=== PATIENT | male | born 1990 | race Caucasian/White ===

== ENCOUNTER 2018-08-19 11:38 | Outpatient (CLI) | payer OTHER ==
--- NOTE | 2018-08-19 12:56 | RAD ---
AP ABDOMINAL RADIOGRAPH: 08/19/2018 HISTORY: History of renal calculi. COMPARISON: 01/01/2014 FINDINGS: No definite suspicious calcification is seen on this examination. The bowel gas pattern is nonspecif ic. Osseous structures are intact. The calcification is seen at the L2-L3 level on the left on the prior exam is not visualized on this study. IMPRESSION: No definite calculi are seen overlying the region of the expected location of the renal collecting sy stems and bilateral ureters. Renal shadows are mostly obscured by bowel gas. POS: LAURY
== END 2018-08-19 11:39 | disposition home or self-care (01) ==
LOC: RAD 11:38
PROVIDERS: ATTEND Urology
DX: N20.0 Calculus of kidney (principal)
CPT/HCPCS: 74018

== ENCOUNTER 2019-08-21 10:19 | Emergency (ER) | payer OTHER ==
[2019-08-21 11:30] LABS: Bacteria/HPF None Seen HPF (None Seen); Bilirubin Negative (Negative); Blood, Urine Trace (Negative); Clarity Clear (Clear); Glucose, Urine (Dipstick) Normal (Negative); Leukocyte 25 Leu/uL (Negative); Nitrite Negative (Negative); Protein, Urine (Dipstick) Negative (Neg-Trace); RBC/HPF 0-3 HPF (0-3); Squamous Epithelial 0-3 HPF (0-3); Transitional Epithelial 0-3 HPF (None Seen); Urobilinogen Normal mg/dL (Less than 2)
[2019-08-21 11:41] LABS: Sperm/HPF 1+ HPF (None Seen)
== END 2019-08-21 12:00 | disposition home or self-care (01) ==
LOC: ERS 10:19
DX: N20.0 Calculus of kidney (principal); M10.9 Gout, unspecified; Z79.899 Other long term (current) drug therapy
CPT/HCPCS: 81003; 81015; 99284

== ENCOUNTER 2019-08-28 13:12 | Day surgery (SDC) | payer OTHER ==
[2019-08-23 14:41] VITALS: BMI 28.5
[2019-08-28] MEDS ORDERED: Midazolam HCl 2 mg/2 ml Vial ONE ×2 (15:05→15:32)
[2019-08-28] MEDS ORDERED: Fentanyl 100 MCG/2 ML VIAL ONE (15:32)
[2019-08-28] MEDS ORDERED: HYDROmorphone 0.5 MG/0.5 ML SYRINGE ONE (15:33)
[2019-08-28] MEDS ORDERED: Lidocaine 2% Jelly 5 ML TUBE ONE (15:33)
--- NOTE | 2019-08-28 20:22 | OP ---
DATE OF PROCEDURE: 08/28/2019 PREOPERATIVE DIAGNOSIS: Urethral stones. POSTOPERATIVE DIAGNOSIS: Urethral stones. PROCEDURES PERFORMED: Cystourethroscopy, laser lithotripsy of stone and removal of stone fragments with Nitinol basket. ANESTHESIA: TIVA. ESTIMATED BLOOD LOSS: None. FINDINGS: There is a 9-mm stone kind of wedged in the fossa navicularis. We were able to push it back into the bulb of the urethra, break it up into few fragments with the holmium laser and then used a Nitinol basket to remove those. Inspection of the prostate and bladder revealed no other stones to be present. There was some mild fossa navicularis and meatal stenosis, which is probably why the stone did not pass. DESCRIPTION OF PROCEDURE: Obtained written and verbal consent from the patient. After receiving some IV antibiotics, he was taken to the operating suite. PlexiPulses were placed on his lower extremities and turned on. He was placed in a supine position on the treatment table and was given TIVA sedation. He was placed in the dorsal lithotomy position. He was sterilely prepped and draped. Cystoscopy was done with a 17-Kinyarwanda sheath. The stone was just in the fossa navicularis, was pushed back down to the bulb, then a laser fiber was brought in to break it up in a few pieces. We used a Nitinol basket to basket these pieces and remove them and we will send them off for analysis. The scope was then passed through the prostatic urethra into the bladder and the bladder was inspected without any other finding noted. The rest of the urethra was then reinspected on the way out. A Garcia catheter was not placed. He was awakened, extubated, and taken by stretcher to recovery room. Job ID: [id number]
== END 2019-08-28 17:37 | disposition home or self-care (01) ==
LOC: SDC 13:12
PROVIDERS: ATTEND Urology
PROC: 0TFD8ZZ Fragmentation in Urethra, Via Natural or Artificial Opening Endoscopic (ICD-10-PCS; principal; 2019-08-28)
DX: N21.1 Calculus in urethra (principal)
CPT/HCPCS: 82365; 88300; J0690; J1170; J2250; J3010

== ENCOUNTER 2019-10-25 16:29 | Inpatient (IN) | payer OTHER ==
[~2019-10-25 16:29] MED LIST: Iopamidol-370 76% 500 ML 1 ML ONE
[2019-10-25] MEDS ORDERED: Fentanyl 100 MCG/2 ML VIAL ONE ×2 (17:08→18:59)
[2019-10-25] MEDS ORDERED: Ondansetron PF 4 MG/2 ML Vial ONE (17:10)
[2019-10-25] MEDS ORDERED: Ketorolac Tromethamine 30 MG/ML VIAL ONE (17:10)
[2019-10-25 17:50] LABS: Carbon Dioxide 27 mmol/L (22-29)
[2019-10-25 17:54] LABS: Potassium 4.9 mmol/L (3.5-5.1); Sodium 137 mmol/L (136-145)
[2019-10-25 17:55] LABS: Anion Gap 15 mmol/L (10-20); Chloride 100 mmol/L (98-107)
[2019-10-25 17:56] LABS: %Eosinophils 0.6 % (0.0-10.0)
[2019-10-25 17:56] LABS: BUN (Urea Nitrogen) 12 mg/dL (8.9-20.6); Calc. Creatinine Clearance 0 mL/min (70-130); Estimated GFR-MDRD Greater than 90; Glucose 86 mg/dL (70-105)
[2019-10-25 17:57] LABS: Albumin 4.8 g/dL (3.5-5.0); Bilirubin, Total 0.6 mg/dL (0.2-1.2); Globulin 2.9 g/dL (2.4-3.5); Protein, Total 7.7 g/dL (6.0-8.3)
[2019-10-25 17:58] LABS: ALT (SGPT) 72 U/L (8-55); AST (SGOT) 54 U/L (5-34); Alkaline Phosphatase 98 U/L (40-110); Lipase 520 U/L (8-78)
--- NOTE | 2019-10-25 17:59 | ULT ---
Exam: Right upper quadrant ultrasound: HISTORY: Mid abdominal pain and sternal pain which started today. COMPARISON: None FINDINGS: Liver: Enlarged measuring 20 cm in craniocaudal dimensions. The liver also demonstrates diffuse incre ased echogenicity likely attributable to diffuse fatty infiltration. No focal hepatic lesion is seen. Gallbladder: No evidence of gallbladder calculi, gallbladder wall thickening, or pericholecystic flui d. Common bile duct: The common duct is normal in caliber measuring 4 mm in diameter. Pancreas: Mostly obscured and not well evaluated on this exam. Right kidney: Right kidney demonstrates a normal sonographic appearance. The right kidney measures 1 1.5 cm in length.. IVC: The visualized IVC demonstrates a normal sonographic appearance. IMPRESSION: 1. Hepatomegaly with diffuse fatty infiltration of the liver. 2. No gallbladder calculi are seen, and the common duct is normal in caliber.
[2019-10-25 18:09] LABS: #Eosinphils 0.1 thou/uL (0.0-0.7); #Lymphocytes 1.4 thou/uL (1.20-3.40); #Monocytes 0.8 thou/uL (0.11-0.59); #Neutrophils 12.3 thou/uL (1.40-6.50); %Basophils 0.2 % (0.0-1.0); %Lymphocytes 9.7 % (21.0-51.0); %Monocytes 5.1 % (0.0-10.0); %Neutrophils 84.4 % (42.0-75.0); Hemoglobin 16.9 g/dL (14.0-18.0); Mean Corpuscular HGB CONC 36.4 g/dL (32.0-36.0); Mean Corpuscular Hemoglobin 31.9 pg (27.0-31.0); Mean Corpuscular Volume 87.8 fL (78.0-98.0); Mean Platelet Volume 8.3 fL (7.4-10.4); Platelet Count 251 thou/uL (130-400); RBC Distribution Width 11.9 % (11.5-14.5); Red Blood Cell (RBC) Count 5.29 mill/uL (4.70-6.10); White Blood Cell (WBC) Count 16.5 thou/uL (4.8-10.8)
[2019-10-25 18:12] LABS: Critical Call w/ Read Back W
--- NOTE | 2019-10-25 19:24 | CT ---
CT OF ABDOMEN AND PELVIS PERFORMED WITH INTRAVENOUS CONTRAST ENHANCEMENT: 10/25/19 HISTORY: Abdominal pain. Pancreatitis. COMPARISON: A 12/26/13 exam. The lung bases are clear of infiltrates. Liver shows some element of fatty change. The spleen is within normal limits. There are some mild per ipancreatic inflammatory change. The gallbladder is contracted. No biliary ductal dilatation. Right and left adrenal glands and right and left kidneys are within normal limits of size. There is n o significant periaortic or mesenteric adenopathy. CT OF PELVIS PERFORMED WITH CONTRAST: The colon is somewhat decompressed. The appendix is normal. No adenopathy or mass. IMPRESSION: CT findings compatible with early pancreatitis. POS: LAURA
[2019-10-25] MEDS ORDERED: D5 1/2 NS w/20 mEq KCL 1,000 ML ONE (20:58)
[2019-10-25] MEDS ORDERED: Insulin Regular 100 units/100 ml in NS IVPB SCH (21:00)
[2019-10-25] MEDS ORDERED: Ondansetron PF 4 MG/2 ML Vial IVP PRN (22:06)
[2019-10-25] MEDS ORDERED: Ondansetron ODT 4 MG TAB PO PRN (22:06)
[2019-10-25] MEDS ORDERED: Dextrose 5% in Water 1,000 ML IV PRN (22:10)
[2019-10-25] MEDS ORDERED: Dextrose 50% Abboject 50 ML SYRINGE SLOW IVP PRN (22:10)
[2019-10-25] MEDS ORDERED: HUMULIN R 100 UNITS in Sodium Chloride 0.9% 100 ML IVPB SCH (22:15)
[2019-10-25] MEDS ORDERED: Morphine 4 MG/ML VIAL ONE (22:18)
--- NOTE | 2019-10-25 23:02 | HP ---
CHIEF COMPLAINT: Abdominal pain. HISTORY OF PRESENT ILLNESS: This patient is a 29-year-old male who has a history of kidney stones and a known history of high cholesterol. States his PCP told him that they were high and had actually asked him to start some medication which was supposed to start sometime this week, but has not as of yet. The patient felt fine, awoke this morning feeling a little bit of abdominal discomfort, decided to eat something, things got worse from there, just felt bloated, crampy pain, tried some Tums and hzsw-rum-yvmctud gas medicines which did not help and he progressively got worse to the point that his pain was fairly severe and he presented to the emergency department. The patient's CT scan labs are consistent with a pancreatitis. The patient reports he does drink on the weekends, mostly beer but does not drink at all on Wednesday through . This week on Wednesday, had a [employer] republican and he did have a couple of beers, but has not had any otherwise. He has never had symptoms like this in the past either. REVIEW OF SYSTEMS: The patient does report he has been having a lot of reflux type symptoms including acid brash and regurgitation seems to be more at night and possibly positional. The patient also reports he does have some cold sweats when the pain becomes more severe. Other than that, all systems were reviewed. All pertinent positives and negatives noted in HPI. PAST MEDICAL HISTORY: Gout, kidney stones, hyperlipidemia. PAST SURGICAL HISTORY: Lithotripsy. FAMILY HISTORY: Father has coronary artery disease. Mother and brother have hyperlipidemia. SOCIAL HISTORY: He is . His , Alondra, is with him in the room. As mentioned above, drinks moderately on the weekends. Denies tobacco or drugs. He is full code and his would be his surrogate decision maker. CURRENT MEDICATIONS: Allopurinol 300 mg b.i.d. ALLERGIES: NONE. PHYSICAL EXAMINATION: VITAL SIGNS: BP 151/98, pulse 92, respirations 16, O2 sats 98%. GENERAL APPEARANCE: He appears to be uncomfortable and in modest distress from that. HEENT: BRADY. No acute lesions. NECK: Supple and symmetric. HEART: Regular rate and rhythm without murmurs, gallops, or rubs. LUNGS: Clear to auscultation bilaterally. No wheeze or rales. ABDOMEN: Soft, nondistended. Bowel sounds are minimal. He has significant tenderness with voluntary guarding in the epigastric area. No hepatosplenomegaly. EXTREMITIES: No cyanosis, clubbing, or edema. PSYCH: Normal affect and behavior considering his current situation. NEURO: Seems to be moving all extremities spontaneously with no deficits. Cognitively intact. Cranial nerves are functional. IMAGING STUDIES: CT abdomen and pelvis compatible with early pancreatitis. CT also shows diffuse fatty liver. Ultrasound shows diffuse fatty liver. Gallbladder appears normal. EKG shows normal sinus rhythm with no ST or T wave changes. LABORATORY DATA: White count 16.5, hemoglobin 16.9, platelets 251. Sodium 137, potassium 4.9, chloride 100, BUN 12, creatinine 0.91, glucose 86, AST 54, ALT is 72, albumin 4.8, triglycerides 3800, lipase 520. IMPRESSION AND PLAN: 1. New-onset pancreatitis, appears to be due to hypertriglyceridemia, although alcohol may be contributory to some degree. He is admitted to the IMCU on an insulin and dextrose drip. We will keep him n.p.o. except for medications and give him fluids and morphine for pain IV. 2. Hypertriglyceridemia. The patient is aware of a history of hyperlipidemia. We will get him on the insulin drip for now and start him on some p.o. medications in the morning. 3. Gout. Continue his allopurinol. 4. Fatty liver. I had a long discussion with the patient about his weight and alcohol consumption and the effects that could be potentially having on the fatty liver. Job ID: [id number] MTDD
[2019-10-26] MEDS ORDERED: Fentanyl 100 MCG/2 ML VIAL ONE (00:26)
[2019-10-26] MEDS ORDERED: Sodium Chloride 0.9% (PF) 10 ML VIAL FS PRN (00:27)
[2019-10-26 04:20] LABS: ALT (SGPT) 51 U/L (8-55); AST (SGOT) 23 U/L (5-34); Albumin 4.3 g/dL (3.5-5.0); Alkaline Phosphatase 86 U/L (40-110); Anion Gap 21 mmol/L (10-20); BUN (Urea Nitrogen) 9 mg/dL (8.9-20.6); Bilirubin, Total 0.8 mg/dL (0.2-1.2); Calc. Creatinine Clearance 0 mL/min (70-130); Calcium 9.5 mg/dL (7.8-10.44); Carbon Dioxide 17 mmol/L (22-29); Chloride 100 mmol/L (98-107); Estimated GFR-MDRD Greater than 90; Globulin 3.5 g/dL (2.4-3.5); Glucose 95 mg/dL (70-105); Potassium 3.9 mmol/L (3.5-5.1); Protein, Total 7.8 g/dL (6.0-8.3); Sodium 134 mmol/L (136-145)
[2019-10-26] MEDS ORDERED: Morphine 4 MG/ML VIAL ONE (04:28)
[2019-10-26 04:54] LABS: #Lymphocytes 0.9 thou/uL (1.20-3.40); #Monocytes 0.8 thou/uL (0.11-0.59); #Neutrophils 11.4 thou/uL (1.40-6.50); %Basophils 0.4 % (0.0-1.0); %Eosinophils 0.4 % (0.0-10.0); %Lymphocytes 6.9 % (21.0-51.0); %Neutrophils 86.4 % (42.0-75.0); Hemoglobin 14.2 g/dL (14.0-18.0); Mean Corpuscular Hemoglobin 32.6 pg (27.0-31.0); Mean Corpuscular Volume 85.9 fL (78.0-98.0); Mean Platelet Volume 7.7 fL (7.4-10.4); Platelet Count 245 thou/uL (130-400); RBC Distribution Width 11.7 % (11.5-14.5); Red Blood Cell (RBC) Count 4.35 mill/uL (4.70-6.10); White Blood Cell (WBC) Count 13.1 thou/uL (4.8-10.8)
[2019-10-26] MEDS: Morphine 2 MG/ML SYRINGE SLOW IVP PRN (05:29)
[2019-10-26] MEDS: Dextrose 5 %-0.45 % NaCl 1,000 ML IV SCH ×2 (05:34→15:44)
[2019-10-26 06:48] VITALS: BMI 28.3
[2019-10-26] MEDS: Enoxaparin Sodium 40 MG/0.4 ML SYRINGE SC SCH (07:48)
[2019-10-26] MEDS: Allopurinol 300 MG TAB PO SCH ×2 (07:48→20:16)
[2019-10-26] MEDS: Pantoprazole 40 MG VIAL IVP SCH (07:48)
[2019-10-26] MEDS: Morphine 4 MG/ML VIAL SLOW IVP PRN ×5 (07:54→23:30)
--- NOTE | 2019-10-26 17:48 | PDOC.HOSPP ---
- Subjective Encounter Date: 10/26/19 Encounter Time: 17:30 Subjective: f/u for acute pancreatitis likely due to hypertriglyceridemia with initial level >3800. Placed on insulin gtt and D5 infusion with current triglycerides in 1200 range. Feels better overall but still pain in abd when turning. - Objective Vital Signs & Weight: Vital Signs (12 hours) Temp Pulse Ox 10/26/19 15:55 99.1 F 10/26/19 10:59 99 F 10/26/19 07:34 98 10/26/19 07:00 97.9 F Weight Weight 202 lb 13.204 oz Most Recent Monitor Data Heart Rate from ECG 103 NIBP 121/74 NIBP BP-Mean 89 Respiration from ECG 18 SpO2 98 I&O: 10/25/19 10/26/19 10/27/19 06:59 06:59 06:59 Output Total 1600 Balance -1600 Result Diagrams: 10/26/19 03:35 10/26/19 03:35 Additional Labs: Accuchecks 10/26/19 10/26/19 10/26/19 17:07 16:12 15:03 POC Glucose 82 94 92 10/26/19 10/26/19 10/26/19 14:04 13:13 12:08 POC Glucose 101 91 89 10/26/19 10/26/19 10/26/19 11:10 09:56 08:50 POC Glucose 93 85 96 10/26/19 10/26/19 10/26/19 07:45 06:03 05:01 POC Glucose 91 107 96 10/26/19 10/26/19 10/26/19 03:30 01:54 00:21 POC Glucose 99 96 95 10/25/19 10/25/19 10/25/19 23:15 22:14 20:39 POC Glucose 97 102 98 Radiology Reviewed by me: Yes (CT abd - + pancreatitis) EKG Reviewed by me: Yes (Tele - sinus tachycardia) Hospitalist ROS - Medication Medications: Active Medications Generic Name Dose Route Start Last Admin Trade Name Freq PRN Reason Stop Dose Admin Allopurinol 300 mg 10/26/19 09:00 10/26/19 07:48 Zyloprim PO 300 mg BID TAE Administration Enoxaparin Sodium 40 mg 10/26/19 09:00 10/26/19 07:48 Lovenox SC 40 mg 0900 TAE Administration Dextrose/Sodium Chloride 1,000 mls @ 75 mls/hr 10/25/19 22:15 10/26/19 15:44 D5 1/2 Ns IV 1,000 mls .[id number] TAE Administration Morphine Sulfate 4 mg 10/25/19 22:08 10/26/19 15:32 Morphine SLOW IVP 4 mg Q4H PRN Administration Moderate to Severe Pain (6-10) Morphine Sulfate 2 mg 10/25/19 22:08 10/26/19 05:29 Morphine SLOW IVP 2 mg Q4H PRN Administration Mild-Moderate Pain (1-5) Pantoprazole Sodium 40 mg 10/26/19 09:00 10/26/19 07:48 Protonix IVP 40 mg DAILY TAE Administration - Exam General Appearance: NAD Eye: PERRL, anicteric sclera ENT: normocephalic atraumatic, no oropharyngeal lesions Neck: supple, symmetric, no JVD, no thyromegaly, no lymphadenopathy Heart: no murmur, no gallops, no rubs, normal peripheral pulses Heart - other findings: tachycardic Respiratory: CTAB, no wheezes, no rales, no ronchi Gastrointestinal: soft, diminished bowl sounds Gastrointestinal - other findings: TTP in mid-epigastric region Extremities: no cyanosis, no clubbing, no edema Skin: normal turgor, no lesions Neurological: cranial nerve grossly intact, no new deficit Musculoskeletal: normal tone, normal strength Psychiatric: normal affect, A&O x 3 Hosp A/P (1) Acute pancreatitis Code(s): K85.90 - ACUTE PANCREATITIS WITHOUT NECROSIS OR INFECTION, UNSP Status: Acute Plan: Secondary to #2, continue pain control, IVF's, NPO except ice chips, serial Lipase (2) Hypertriglyceridemia Code(s): E78.1 - PURE HYPERGLYCERIDEMIA Status: Acute Plan: Continue Insulin gtt/D5 infusion, serial triglycerides, improving trend, Lipitor when stable (3) Gout Code(s): M10.9 - GOUT, UNSPECIFIED Status: Chronic Plan: Chronic Allopurinol (4) Obesity Code(s): E66.9 - OBESITY, UNSPECIFIED Status: Chronic Plan: Weight loss as outpt, heart healthy diet for home - Plan plan discussed w/ family, DVT proph w/SCDs Continue supportive mgmt Continue Insulin gtt Continue D5 infusion Add IV NS @ 125ml/h Serial Triglyceride level AM lab: CMP, Lipase, CBC, Triglycerides
--- NOTE | 2019-10-26 19:04 | CON ---
DATE OF CONSULTATION: HISTORY OF PRESENT ILLNESS: Mr. Harrison is a very pleasant 29-year-old, who reported relatively acute onset of abdominal discomfort leading to admission in the hospital with diagnosis of pancreatitis. His triglycerides are almost 4000. He does have a history of reflux, but this discomfort was different. He only drinks beer on the weekends. PAST MEDICAL HISTORY: Remarkable for gout, that was a big problem for until he started taking daily allopurinol and nephrolithiasis. He has had lithotripsy in the past. FAMILY HISTORY: Positive for vascular disease and lipid disorder. SOCIAL HISTORY: He is nonsmoker, non-daily drinker. ALLERGIES: REPORTS NO DRUG ALLERGIES. REVIEW OF SYSTEMS: Otherwise negative. He says his abdomen is 100% better. PHYSICAL EXAMINATION: VITAL SIGNS: He is 108/75, heart rate 105, respiratory rate 16, and oximetry is 97. GENERAL: Complaining of being thirsty. HEAD AND NECK: Unremarkable. LUNGS: Clear. HEART: Regular rate and rhythm. ABDOMEN: Soft. EXTREMITIES: Without clubbing, cyanosis, or edema. Intakes only 1844 since he arrived yesterday. His fluid balance is only positive 244, so I have recommended the nurses to give him another liter of saline. He will continue on the D5 half normal with the insulin drip for his lipids. I have consult to Gastroenterology. We will see him later today. TIME SPENT: This is a 70-minute consult, 50% of the time spent on the unit coordinating care. Job ID: [id number]
--- NOTE | 2019-10-26 20:55 | CON ---
DATE OF CONSULTATION: 10/26/2019 CHIEF COMPLAINT: Abdominal pain. HISTORY OF PRESENT ILLNESS: Mr. Hunter ortega is a 29-year-old man, who presented with abrupt onset of severe pressure like to sharp epigastric abdominal pain yesterday morning at 10 o'clock. He ate a meal after that and the pain just greatly worsened, so he came on to the emergency room. The pain then worsened to the point that he developed an episode of nausea and vomiting in the ER, but he did not have vomiting prior to presentation. He had a brown runny bowel movement yesterday and no bowel movement today. No blood in the stool. No bloody emesis. No fever during evaluation in emergency room. He was found to have acute pancreatitis with inflammatory changes around the pancreas by CT scan and fatty liver disease. He also was noted to have severe hypertriglyceridemia. He was admitted and given fluids and started on insulin drip to drive his triglycerides down. He has been n.p.o. His pain is now greatly improved. PAST MEDICAL HISTORY: Hyperlipidemia. He states that he was given a statin for this couple of years ago, but never really took it. He has gout and history of kidney stones. PAST SURGICAL HISTORY: Lithotripsy. FAMILY HISTORY: Negative for GI malignancy. He has multiple first-degree relatives with hyperlipidemia. SOCIAL HISTORY: He drinks 12-pack of beer on Wednesday night and 12-pack of beer on Wednesday nights. No alcohol between Wednesday and . No drugs. No smoking. ALLERGIES: NO KNOWN DRUG ALLERGIES. MEDICATIONS: Prior to admission, allopurinol. REVIEW OF SYSTEMS: Negative x10 systems reviewed, except as stated in the history of present illness. MEDICATIONS: Current inpatient medications include; 1. Allopurinol. 2. Enoxaparin. 3. Pantoprazole. 4. Insulin drip. PHYSICAL EXAMINATION: VITAL SIGNS: Temperature 99.1, blood pressure 108/75, pulse 105. GENERAL: He is in no acute distress. Alert and oriented x3. HEENT: Eyes have no scleral icterus. Oropharynx is clear without lesions. No cervical or supraclavicular lymphadenopathy. LUNGS: Clear to auscultation bilaterally. HEART: Regular rate and rhythm without murmur. ABDOMEN: Soft. Mild tenderness in the epigastric region without guarding. Bowel sounds are present. EXTREMITIES: No lower extremity edema. IMPRESSION: 1. Acute hypertriglyceridemia induced pancreatitis. This is mild pancreatitis overall and has no secondary organ failure. He did have decrease in his hemoglobin and white count with rehydration appropriately. He is clinically greatly improved. 2. 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 He is on insulin drip to drive his triglycerides down. I will start him on gemfibrozil. 3. If his triglycerides are less than a 1000 tomorrow morning, then stop insulin drip and start a low-fat diet. He really should not have to slowly progress through clear liquids and full liquids prior to that. 4. Alcohol abuse and fatty liver disease. He has mild elevation of the transaminases. He drinks 12-pack per day on the weekends with no alcohol use during the week days. Complete alcohol cessation is recommended. RECOMMENDATIONS: 1. Stop all alcohol. 2. Start gemfibrozil. 3. Stop insulin drip tomorrow morning if the triglyceride levels are less than 1000. 4. Also start a low fat diet tomorrow morning if his pain continues to improve and his triglycerides have continued to decrease. 5. I have recommended that he schedule an appointment with Endocrinology as an outpatient and follow up with his primary care doctor, Dr. Cavazos to monitor and treat the hypertriglyceridemia. Job ID: [id number] MTDD
[2019-10-27] MEDS: Sodium Chloride 0.9% 1,000 ML IV SCH ×3 (02:41→21:03)
[2019-10-27] MEDS: Morphine 4 MG/ML VIAL SLOW IVP PRN (02:47)
[2019-10-27 04:26] LABS: Band 1 % (5-11); Hemoglobin 12.8 g/dL (14.0-18.0); Hypochromia SLIGHT = 6-15 cells (100X) (0-5/hpf); Lymphocytes 7 % (21-51); MDiff Complete? YES; Mean Corpuscular HGB CONC 34.6 g/dL (32.0-36.0); Mean Corpuscular Hemoglobin 31.3 pg (27.0-31.0); Mean Corpuscular Volume 90.3 fL (78.0-98.0); Mean Platelet Volume 7.7 fL (7.4-10.4); Monocytes 4 % (0-10); Neutrophil 88 % (42-75); Platelet Count 201 thou/uL (130-400); Platelet Morphology Comment Appears Adequate; RBC Distribution Width 11.8 % (11.5-14.5); Red Blood Cell (RBC) Count 4.11 mill/uL (4.70-6.10)
[2019-10-27 04:40] LABS: ALT (SGPT) 29 U/L (8-55); AST (SGOT) 16 U/L (5-34); Albumin 3.6 g/dL (3.5-5.0); Alkaline Phosphatase 63 U/L (40-110); Anion Gap 11 mmol/L (10-20); BUN (Urea Nitrogen) 7 mg/dL (8.9-20.6); Calc. Creatinine Clearance 192 mL/min (70-130); Calcium 8.2 mg/dL (7.8-10.44); Carbon Dioxide 25 mmol/L (22-29); Chloride 102 mmol/L (98-107); Estimated GFR-MDRD Greater than 90; Globulin 2.7 g/dL (2.4-3.5); Glucose 90 mg/dL (70-105); Lipase 461 U/L (8-78); Potassium 3.5 mmol/L (3.5-5.1); Protein, Total 6.3 g/dL (6.0-8.3); Sodium 134 mmol/L (136-145); Triglycerides 468 mg/dL (Less than 150)
[2019-10-27] MEDS: Dextrose 5 %-0.45 % NaCl 1,000 ML IV SCH ×2 (04:47→09:32)
[2019-10-27] MEDS: Allopurinol 300 MG TAB PO SCH ×2 (08:31→20:02)
[2019-10-27] MEDS: Enoxaparin Sodium 40 MG/0.4 ML SYRINGE SC SCH (08:31)
[2019-10-27] MEDS: Pantoprazole 40 MG VIAL IVP SCH (08:31)
[2019-10-27] MEDS ORDERED: Insulin Regular 300 UNITS/3 ML VIAL SC PRN (09:03)
[2019-10-27] MEDS: Morphine 2 MG/ML SYRINGE SLOW IVP PRN ×4 (09:29→20:01)
[2019-10-27 10:03] LABS: Hemoglobin A1c 4.9 % (4.0-6.0)
--- NOTE | 2019-10-27 10:18 | PRG ---
DATE OF SERVICE: 10/27/2019 SUBJECTIVE: The patient remains in the ICU. He is currently being treated for triglyceride-induced pancreatitis. His abdominal pain is less than it was yesterday. OBJECTIVE: VITAL SIGNS: Temperature 98.5, pulse 114, blood pressure 119/79, O2 saturation is ranging from the mid 90s when he is awake to the mid 80s when he is asleep and having apneic spells. HEENT: Unremarkable. NECK: No adenopathy or JVD. LUNGS: Clear anteriorly. CARDIAC: S1 and S2, regular. ABDOMEN: Mildly tender midline. EXTREMITIES: No clubbing, cyanosis, or edema. LABORATORY DATA: Sodium 134, potassium 3.5, chloride 102, CO2 of 25, BUN 7, creatinine 0.7, glucose 90, triglycerides 468. Lipase 461. White blood cell count 9, hematocrit 37.1, and platelet count 201. ASSESSMENT: 1. Triglyceride-induced pancreatitis. 2. Probable underlying RAOUL. PLAN: From the pancreatitis standpoint, the patient is doing well, can probably transfer to the floor. He will need an outpatient sleep study after he is discharged. No further Pulmonary recommendations at this time. Job ID: [id number]
--- NOTE | 2019-10-27 12:58 | PDOC.HOSPP ---
- Subjective Encounter Date: 10/27/19 Encounter Time: 11:00 Subjective: Feels better...less abdominal pain. - Objective Vital Signs & Weight: Vital Signs (12 hours) Temp Pulse Ox 10/27/19 12:00 98.9 F 10/27/19 08:00 99.2 F 96 10/27/19 04:00 98.5 F Weight Weight 202 lb 13.204 oz Most Recent Monitor Data Heart Rate from ECG 115 NIBP 135/88 NIBP BP-Mean 103 Respiration from ECG 20 SpO2 96 I&O: 10/26/19 10/27/19 10/28/19 06:59 06:59 06:59 Intake Total 4465.1 90 Output Total 1900 730 Balance 2565.1 -640 Result Diagrams: 10/27/19 03:57 10/27/19 03:57 Additional Labs: Accuchecks 10/27/19 10/27/19 10/27/19 08:37 03:59 03:07 POC Glucose 128 H 91 89 10/27/19 10/27/19 10/26/19 02:07 01:16 23:56 POC Glucose 93 86 103 10/26/19 10/26/19 10/26/19 22:56 22:05 21:01 POC Glucose 93 101 93 10/26/19 10/26/19 10/26/19 19:57 18:47 18:00 POC Glucose 89 98 97 10/26/19 10/26/19 10/26/19 17:07 16:12 15:03 POC Glucose 82 94 92 10/26/19 10/26/19 14:04 13:13 POC Glucose 101 91 Hospitalist ROS - Medication Medications: Active Medications Generic Name Dose Route Start Last Admin Trade Name Freq PRN Reason Stop Dose Admin Allopurinol 300 mg 10/26/19 09:00 10/27/19 08:31 Zyloprim PO 300 mg BID TAE Administration Enoxaparin Sodium 40 mg 10/26/19 09:00 10/27/19 08:31 Lovenox SC 40 mg 0900 TAE Administration Dextrose/Sodium Chloride 1,000 mls @ 75 mls/hr 10/25/19 22:15 10/27/19 09:32 D5 1/2 Ns IV 1,000 mls .[id number] TAE Administration Sodium Chloride 1,000 mls @ 125 mls/hr 10/27/19 02:45 10/27/19 09:33 Normal Saline 0.9% IV 1,000 mls .Q8H TAE Administration Morphine Sulfate 4 mg 10/25/19 22:08 10/27/19 02:47 Morphine SLOW IVP 4 mg Q4H PRN Administration Moderate to Severe Pain (6-10) Morphine Sulfate 2 mg 10/25/19 22:08 10/27/19 11:10 Morphine SLOW IVP 2 mg Q4H PRN Administration Mild-Moderate Pain (1-5) Pantoprazole Sodium 40 mg 10/26/19 09:00 10/27/19 08:31 Protonix IVP 40 mg DAILY TAE Administration - Exam General Appearance: NAD Eye: anicteric sclera Neck: no JVD Heart: RRR Respiratory: CTAB Gastrointestinal: tender to palpation, diminished bowl sounds Extremities: no edema Neurological: no weakness Psychiatric: normal affect Hosp A/P (1) Acute pancreatitis Code(s): K85.90 - ACUTE PANCREATITIS WITHOUT NECROSIS OR INFECTION, UNSP Status: Acute (2) Hypertriglyceridemia Code(s): E78.1 - PURE HYPERGLYCERIDEMIA Status: Acute (3) Gout Code(s): M10.9 - GOUT, UNSPECIFIED Status: Chronic (4) Obesity Code(s): E66.9 - OBESITY, UNSPECIFIED Status: Chronic - Plan Continue IV fluid , narcotics.. f/u with GI..
--- NOTE | 2019-10-27 15:03 | PRG ---
DATE OF SERVICE: 10/27/2019 SUBJECTIVE: The patient reports pain is much better compared to when he was admitted. He is still sore. There is no nausea or vomiting. PHYSICAL EXAMINATION: VITAL SIGNS: Temperature is 98.9, blood pressure 135/88, and pulse of 112. GENERAL: He is alert, ill-appearing, but in no distress. HEENT: Shows anicteric sclerae. NECK: Supple. CV: Shows normal S1 and S2. Tachycardic. CHEST: Shows breath sounds. Clear to auscultation. ABDOMEN: Mildly protuberant. No tympany. No distention. Very faint bowel sounds. EXTREMITIES: Show no edema. LABORATORY DATA: Electrolytes within normal range. Creatinine 0.74, CO2 of 25. Triglyceride down to 468, lipase down to 461. WBCs 9.0, hemoglobin 12.8, and platelet count of 201. ASSESSMENT: 1. Acute pancreatitis from severely elevated triglyceride. His pain is improving. CT showed viable pancreas without any evidence of necrosis. 2. Hypertriglyceridemia, improving. Insulin drip is being stopped. RECOMMENDATIONS: 1. We will start on clear liquids. 2. Start on gemfibrozil. 3. Can move to floor from GI standpoint tomorrow. 4. Dr. Rodriguez is covering for GI Service this weekend. Job ID: [id number]
[2019-10-27] MEDS: Gemfibrozil 600 MG TAB PO SCH (16:52)
[2019-10-28] MEDS: Morphine 4 MG/ML VIAL SLOW IVP PRN ×3 (00:04→15:01)
[2019-10-28] MEDS: Sodium Chloride 0.9% 1,000 ML IV SCH ×3 (05:25→23:28)
[2019-10-28] MEDS: Allopurinol 300 MG TAB PO SCH ×2 (09:26→20:15)
[2019-10-28] MEDS: Pantoprazole 40 MG VIAL IVP SCH (09:26)
[2019-10-28] MEDS: Gemfibrozil 600 MG TAB PO SCH ×2 (09:26→17:02)
[2019-10-28] MEDS: Enoxaparin Sodium 40 MG/0.4 ML SYRINGE SC SCH (09:26)
[2019-10-28] MEDS: Dextrose 5 %-0.45 % NaCl 1,000 ML IV SCH ×2 (09:27→23:28)
--- NOTE | 2019-10-28 13:05 | PDOC.HOSPP ---
- Subjective Encounter Date: 10/28/19 Encounter Time: 12:25 Subjective: Feels better.. - Objective Vital Signs & Weight: Vital Signs (12 hours) Temp Pulse Ox 10/28/19 10:21 97.3 F L 10/28/19 08:00 99 10/28/19 07:15 97.9 F 10/28/19 03:31 97.9 F Weight Weight 202 lb 13.204 oz Most Recent Monitor Data Heart Rate from ECG 99 NIBP 150/100 NIBP BP-Mean 116 Respiration from ECG 15 SpO2 93 I&O: 10/27/19 10/28/19 10/29/19 06:59 06:59 06:59 Intake Total 4465.1 4664 Output Total 1900 2280 Balance 2565.1 2384 Result Diagrams: 10/27/19 03:57 10/27/19 03:57 Additional Labs: Accuchecks 10/28/19 10/28/19 10/27/19 10:09 06:11 19:04 POC Glucose 113 H 133 H 118 H 10/27/19 12:46 POC Glucose 109 Hospitalist ROS - Medication Medications: Active Medications Generic Name Dose Route Start Last Admin Trade Name Freq PRN Reason Stop Dose Admin Allopurinol 300 mg 10/26/19 09:00 10/28/19 09:26 Zyloprim PO 300 mg BID TAE Administration Enoxaparin Sodium 40 mg 10/26/19 09:00 10/28/19 09:26 Lovenox SC 40 mg 0900 TAE Administration Gemfibrozil 600 mg 10/27/19 16:30 10/28/19 09:26 Lopid PO 600 mg BID-AC TAE Administration Dextrose/Sodium Chloride 1,000 mls @ 75 mls/hr 10/25/19 22:15 10/28/19 09:27 D5 1/2 Ns IV 1,000 mls .[id number] TAE Administration Sodium Chloride 1,000 mls @ 125 mls/hr 10/27/19 02:45 10/28/19 05:25 Normal Saline 0.9% IV 1,000 mls .Q8H TAE Administration Morphine Sulfate 4 mg 10/25/19 22:08 10/28/19 05:21 Morphine SLOW IVP 4 mg Q4H PRN Administration Moderate to Severe Pain (6-10) Morphine Sulfate 2 mg 10/25/19 22:08 10/27/19 20:01 Morphine SLOW IVP 2 mg Q4H PRN Administration Mild-Moderate Pain (1-5) Pantoprazole Sodium 40 mg 10/26/19 09:00 10/28/19 09:26 Protonix IVP 40 mg DAILY TAE Administration - Exam General Appearance: NAD Neck: no JVD Heart: RRR Respiratory: CTAB Gastrointestinal: voluntary guarding Extremities: no edema Neurological: no weakness Psychiatric: normal affect Hosp A/P (1) Acute pancreatitis Code(s): K85.90 - ACUTE PANCREATITIS WITHOUT NECROSIS OR INFECTION, UNSP Status: Acute Plan: Started on liquid diet.. (2) Hypertriglyceridemia Code(s): E78.1 - PURE HYPERGLYCERIDEMIA Status: Acute (3) Gout Code(s): M10.9 - GOUT, UNSPECIFIED Status: Chronic (4) Obesity Code(s): E66.9 - OBESITY, UNSPECIFIED Status: Chronic - Plan Continue IV fluid , narcotics.. f/u with GI.. Liquid diet initiated..
[2019-10-28] MEDS: Acetaminophen 325 MG TAB PO PRN (13:07)
[2019-10-29] MEDS: Acetaminophen 325 MG TAB PO PRN (02:30)
[2019-10-29] MEDS: Gemfibrozil 600 MG TAB PO SCH (06:52)
[2019-10-29] MEDS: Sodium Chloride 0.9% 1,000 ML IV SCH (07:00)
--- NOTE | 2019-10-29 10:41 | PDOC.HOSPP ---
- Subjective Encounter Date: 10/29/19 Encounter Time: 10:15 Subjective: feels much better. - Objective Vital Signs & Weight: Vital Signs (12 hours) Temp Pulse Ox 10/29/19 08:00 98 10/29/19 07:28 98.7 F 10/29/19 03:39 97.6 F 10/28/19 23:40 98.8 F Weight Weight 202 lb 13.204 oz Most Recent Monitor Data Heart Rate from ECG 84 NIBP 130/88 NIBP BP-Mean 102 Respiration from ECG 23 SpO2 98 I&O: 10/28/19 10/29/19 10/30/19 06:59 06:59 06:59 Intake Total 4664 2833 Output Total 2280 1700 600 Balance 2384 1133 -600 Result Diagrams: 10/27/19 03:57 10/27/19 03:57 Additional Labs: Accuchecks 10/29/19 10/28/19 10/28/19 00:29 20:05 16:08 POC Glucose 111 H 96 112 H Hospitalist ROS - Medication Medications: Active Medications Generic Name Dose Route Start Last Admin Trade Name Freq PRN Reason Stop Dose Admin Acetaminophen 650 mg 10/28/19 12:41 10/29/19 02:30 Tylenol PO 650 mg Q6H PRN Administration Pain Allopurinol 300 mg 10/26/19 09:00 10/28/19 20:15 Zyloprim PO 300 mg BID TAE Administration Enoxaparin Sodium 40 mg 10/26/19 09:00 10/28/19 09:26 Lovenox SC 40 mg 0900 TAE Administration Gemfibrozil 600 mg 10/27/19 16:30 10/29/19 06:52 Lopid PO 600 mg BID-AC TAE Administration Dextrose/Sodium Chloride 1,000 mls @ 75 mls/hr 10/25/19 22:15 10/28/19 23:28 D5 1/2 Ns IV 1,000 mls .[id number] TAE Administration Sodium Chloride 1,000 mls @ 125 mls/hr 10/27/19 02:45 10/28/19 23:28 Normal Saline 0.9% IV 1,000 mls .Q8H TAE Administration Morphine Sulfate 4 mg 10/25/19 22:08 10/28/19 15:01 Morphine SLOW IVP 4 mg Q4H PRN Administration Moderate to Severe Pain (6-10) Morphine Sulfate 2 mg 10/25/19 22:08 10/27/19 20:01 Morphine SLOW IVP 2 mg Q4H PRN Administration Mild-Moderate Pain (1-5) Pantoprazole Sodium 40 mg 10/26/19 09:00 10/28/19 09:26 Protonix IVP 40 mg DAILY TAE Administration - Exam General Appearance: NAD Neck: no JVD Heart: RRR Respiratory: CTAB Gastrointestinal: voluntary guarding Extremities: no edema Psychiatric: normal affect, A&O x 3 Hosp A/P (1) Acute pancreatitis Code(s): K85.90 - ACUTE PANCREATITIS WITHOUT NECROSIS OR INFECTION, UNSP Status: Acute (2) Hypertriglyceridemia Code(s): E78.1 - PURE HYPERGLYCERIDEMIA Status: Acute (3) Gout Code(s): M10.9 - GOUT, UNSPECIFIED Status: Chronic (4) Obesity Code(s): E66.9 - OBESITY, UNSPECIFIED Status: Chronic - Plan Continue IV fluid , narcotics.. f/u with GI.. advance diet as tolerated.. Possible discharge tomorrow...
[2019-10-29] MEDS: Allopurinol 300 MG TAB PO SCH (10:47)
[2019-10-29] MEDS: Enoxaparin Sodium 40 MG/0.4 ML SYRINGE SC SCH (10:47)
[2019-10-29] MEDS: Pantoprazole 40 MG VIAL IVP SCH (10:47)
[2019-10-29] MEDS: Dextrose 5 %-0.45 % NaCl 1,000 ML IV SCH (10:48)
[2019-10-29 11:14] VITALS: TEMP 98.3
--- NOTE | 2019-10-29 12:34 | PRG ---
DATE OF SERVICE: 10/29/2019 SUBJECTIVE: Mr. Sadi Harrison is a 29-year-old male, hospitalized with acute pancreatitis due to hyperlipidemia. He is on Lopid. His triglycerides level has come down to 480. He is tolerating clear liquid diet. The patient has no abdominal pain, nausea, or vomiting. He feels very hungry today and he has no abdominal pain, no nausea or vomiting. The patient would like to go home. He offers no complaints. OBJECTIVE: GENERAL: Appears comfortable. VITAL SIGNS: Afebrile. Pulse is 98, blood pressure 130/88. CARDIOVASCULAR: Within normal limits. ABDOMEN: Soft. Abdomen is nontender. Abdomen is nondistended. Bowel sounds active. IMPRESSION: 1. Acute pancreatitis, resolved. 2. Hyperlipidemia. RECOMMENDATIONS: 1. Advance diet to regular diet. 2. If he does well with the abdominal pain, nausea, may consider discharge home later today on Lopid. I had a long talk with Mr. Avitia explaining over the regular exercise, tight control of triglycerides, and also may need dietary consult as outpatient. We will see Dr. Diallo Cavazos in the near future and try to get a referral to the dietitian. In the meantime, he is advised strongly about low carb diet, regular exercise, and stay on Lopid. Job ID: [id number]
--- NOTE | 2019-10-30 09:47 | DIS ---
DATE OF ADMISSION: 10/25/2019 DATE OF DISCHARGE: 10/29/2019 ADMITTING DIAGNOSES: 1. Acute pancreatitis secondary to hypertriglyceridemia. 2. History of gout. 3. Fatty liver. DISCHARGE DIAGNOSES: 1. Acute pancreatitis secondary to hypertriglyceridemia. 2. History of gout. 3. Fatty liver. CONSULTANTS: Dr. Mack and Dr. Mcarthur. PROCEDURES: 1. Abdomen ultrasound. 2. Abdomen and pelvis CT. COURSE OF HOSPITALIZATION: Uncomplicated. Responded well to management. The patient is clinically stable at this time being discharged to home. DISCHARGE MEDICATIONS: For discharge medication, please see discharge medication reconciliation sheet. PHYSICAL EXAMINATION: For today's physical examination, please report to the patient's medical record progress note section. FOLLOWUP: The patient is to follow up with Dr. Mack and also with his primary care physician. TIME SPENT: Discharge time, 31 minutes. Job ID: [id number]
== END 2019-10-29 14:22 | disposition home or self-care (01) | DRG 440 ==
LOC: ERS 16:29 → ERHOLD 21:12 → CCU 10-26 04:44 → IMCU/EMU 10-27 21:25
PROVIDERS: ADMIT Hospitalist; ATTEND Hospitalist
DX: K85.90 Acute pancreatitis without necrosis or infection, unspecified (principal); M10.9 Gout, unspecified; E78.5 Hyperlipidemia, unspecified; E78.1 Pure hyperglyceridemia; K76.0 Fatty (change of) liver, not elsewhere classified; E66.9 Obesity, unspecified; Z79.4 Long term (current) use of insulin; F10.10 Alcohol abuse, uncomplicated; E78.00 Pure hypercholesterolemia, unspecified; G47.33 Obstructive sleep apnea (adult) (pediatric); Z68.28 Body mass index [BMI] 28.0-28.9, adult
CPT/HCPCS: 36415; 36416; 74177; 76705; 80053; 83036; 83690; 84478; 85007; 85025; 85027; 93005; 96361; 96365; 96366; 96375; 96376; C9113; J1650; J1815; J1885; J2270; J2405; J3010; J3490; Q9967

== ENCOUNTER 2020-04-08 18:00 | Outpatient (CLI) | payer BC | END 2020-04-08 18:01 | disposition home or self-care (01) | LOC: SLEEPLAB 18:00 | PROVIDERS: ATTEND Urology | DX: G47.33 Obstructive sleep apnea (adult) (pediatric) (principal); R53.83 Other fatigue; E66.9 Obesity, unspecified; R06.83 Snoring; G47.10 Hypersomnia, unspecified; G47.00 Insomnia, unspecified; Z68.30 Body mass index [BMI] 30.0-30.9, adult | CPT/HCPCS: 95806 ==

== ENCOUNTER 2025-07-24 09:26 | Outpatient (CLI) | payer BC | END 2025-07-24 09:27 | disposition home or self-care (01) | LOC: ULT 09:26 | PROVIDERS: ATTEND Physician Assistant Medical | DX: K76.0 Fatty (change of) liver, not elsewhere classified (principal); F10.20 Alcohol dependence, uncomplicated; D50.9 Iron deficiency anemia, unspecified; R16.2 Hepatomegaly with splenomegaly, not elsewhere classified | CPT/HCPCS: 76705 ==